=== PATIENT | female | born 1985 | race African-American/Black ===

== ENCOUNTER 2016-09-24 14:10 | Emergency (ER) | payer OTHER ==
[~2016-09-24] VITALS: Ht 167.6 cm; Wt 81.0 kg
[~2016-09-24 14:10] MED LIST: DOCU-138; ONDA4TAB5; PREN1TAB19
[2016-09-24 14:27] VITALS: BP 140/97
== END 2016-09-24 19:23 | disposition home or self-care (01) ==
LOC: ER 19:17
DX: H10.10 Acute atopic conjunctivitis, unspecified eye (principal); Z92.29 Personal history of other drug therapy
CPT/HCPCS: 99282

== ENCOUNTER 2016-12-13 14:14 | Emergency (ER) | payer OTHER ==
[~2016-12-13] VITALS: Ht 167.6 cm; Wt 86.0 kg
[2016-12-13 14:24] VITALS: BP 166/97
== END 2016-12-13 19:11 | disposition home or self-care (01) ==
LOC: ER 16:00
DX: H57.8 Other specified disorders of eye and adnexa (principal)
CPT/HCPCS: 99283

== ENCOUNTER 2016-12-30 06:05 | Emergency (ER) | payer OTHER ==
[~2016-12-30] VITALS: Ht 167.6 cm; Wt 86.0 kg
[2016-12-30 07:40] VITALS: BP 135/87
== END 2016-12-30 07:50 | disposition home or self-care (01) ==
LOC: ER 07:20
DX: H10.9 Unspecified conjunctivitis (principal)
CPT/HCPCS: 99283; Z7610

== ENCOUNTER 2017-06-20 05:08 | Emergency (ER) | payer OTHER ==
[~2017-06-20] VITALS: Ht 167.6 cm; Wt 56.0 kg
[2017-06-20] MEDS: KETOROLAC 15MG/ML VIAL IV ONE (09:26)
[2017-06-20] MEDS: PENICILLIN V POTASSIUM 250MG TABLET PO STA (09:26)
[2017-06-20] MEDS: DEXAMETHASONE 10 MG/ML VIAL IV ONE (09:26)
[2017-06-20 10:00] VITALS: BP 129/78
== END 2017-06-20 10:34 | disposition home or self-care (01) ==
LOC: ER 05:20
DX: J02.9 Acute pharyngitis, unspecified (principal)
CPT/HCPCS: 81025; 87070; 87430; 96374; 96375; 99284; J1100; J1885; Z7610

== ENCOUNTER 2021-05-19 08:41 | Emergency (ER) | payer MEDICAID, OTHER ==
[~2021-05-19] VITALS: Ht 167.6 cm; Wt 82.0 kg
[2021-05-19 08:47] VITALS: BP 138/81
[2021-05-19] MEDS ORDERED: IBUP-2029 MT (10:28)
[2021-05-19] MEDS ORDERED: SKEL800 MT (10:28)
== END 2021-05-19 11:03 | disposition home or self-care (01) ==
LOC: ER 08:41
DX: M54.12 Radiculopathy, cervical region (principal)
CPT/HCPCS: 99284